=== PATIENT | female | born 1940 | race Caucasian/White ===

== ENCOUNTER 2016-07-08 10:28 | Inpatient (IN) | payer MEDICARE ==
[~2016-07-08] VITALS: Ht 170.2 cm; Wt 65.8 kg
[2016-07-08 12:20] LABS: HEMOGLOBIN 15.9 gm/dl (12.3-15.3); RED BLOOD COUNT 5.52 M/UL (4.00-5.10); WHITE BLOOD COUNT 26.9 K/UL (4.5-11.0)
[2016-07-08] MEDS ORDERED: CITALOPRAM HBR10 MG PO (18:37)
[2016-07-08] MEDS ORDERED: ZESTRIL 40 MG T40 MG PO (18:37)
[2016-07-09 04:31] LABS: HEMOGLOBIN 12.4 gm/dl (12.3-15.3); RED BLOOD COUNT 4.3 M/UL (4.00-5.10); WHITE BLOOD COUNT 27.8 K/UL (4.5-11.0)
[2016-07-10 03:54] LABS: HEMOGLOBIN 12.1 gm/dl (12.3-15.3); RED BLOOD COUNT 4.24 M/UL (4.00-5.10); WHITE BLOOD COUNT 23.5 K/UL (4.5-11.0)
[2016-07-11 03:58] LABS: HEMOGLOBIN 11.2 gm/dl (12.3-15.3); RED BLOOD COUNT 3.96 M/UL (4.00-5.10); WHITE BLOOD COUNT 23.1 K/UL (4.5-11.0)
[2016-07-12 04:11] LABS: HEMOGLOBIN 11.6 gm/dl (12.3-15.3); RED BLOOD COUNT 4.1 M/UL (4.00-5.10); WHITE BLOOD COUNT 19.8 K/UL (4.5-11.0)
[2016-07-13 03:43] LABS: HEMOGLOBIN 11.4 gm/dl (12.3-15.3); RED BLOOD COUNT 4.01 M/UL (4.00-5.10); WHITE BLOOD COUNT 16.2 K/UL (4.5-11.0)
[2016-07-14] MEDS ORDERED: EVISTA 60 MG TA60 MG PO (17:53)
[2016-07-14] MEDS ORDERED: TOPROL XL 100100 MG PO (17:53)
[2016-07-14] MEDS ORDERED: VIBERZI (17:55)
[2016-07-14] MEDS ORDERED: AMLODIPINE-BEN1 EAC4 PO (17:56)
[2016-07-14] MEDS ORDERED: MECLIZINE HCL25 MG PO (17:58)
[2016-07-15 07:41] LABS: HEMOGLOBIN 13.9 gm/dl (12.3-15.3); RED BLOOD COUNT 4.91 M/UL (4.00-5.10); WHITE BLOOD COUNT 47.6 K/UL (4.5-11.0)
--- NOTE | 2016-07-15 09:49 | NUR ---
0746 - NOTIFIED DR TIDWELL OF INCREASE IN WBC FROM 16 ON 07/13 TO 47.6 THIS AM. NO NEW ORDERS RECEIVED. 0805- PAGED REGARDING INCREASE IN WBC. 0992 - PAGED DR MCMAHON AGAIN REQARDING INCREASE IN WBC.
[2016-07-15 11:01] LABS: ADENOVIRUS F 40/41 Not Detected (Negative); ASTROVIRUS Not Detected (Negative); CAMPYLOBACTER Not Detected (Negative); CLOSTRIDIUM DIFFICILE TOX A/B Not Detected (Negative); CRYPTOSPORIDIUM Not Detected (Negative); E.COLI 0157 Not Detected (Negative); ENTAMOEBA HISTOLYTICA Not Detected (Negative); ENTEROAGGREGATIVE E.COLI (EAEC Not Detected (Negative); ENTEROPATHOGENIC E.COLI (EPEC) Not Detected (Negative); ENTEROTOXIGENIC E.COLI (ETEC) Not Detected (Negative); GIARDIA LAMBLIA Not Detected (Negative); NOROVIRUS GI/GII Not Detected (Negative); PLESIOMONAS SHIGELLOIDES Not Detected (Negative); ROTOVIRUS A Not Detected (Negative); SALMONELLA Not Detected (Negative); SAPOVIRUS Not Detected (Negative); SHIG/ENTEROINVAS.ECOLI (EIEC) Not Detected (Negative); SHIGA-LIK TOX.PRO.E.COLI (STEC Not Detected (Negative); VIBRIO Not Detected (Negative); VIBRIO CHOLERAE Not Detected (Negative); YERSINIA ENTEROCOLITICA Not Detected (Negative)
[2016-07-16 05:46] LABS: HEMOGLOBIN 12.7 gm/dl (12.3-15.3); RED BLOOD COUNT 4.44 M/UL (4.00-5.10)
[2016-07-16 05:48] LABS: WHITE BLOOD COUNT 49.7 K/UL (4.5-11.0)
--- NOTE | 2016-07-16 05:55 | NUR ---
ATTEMPTED TO CONTACT DR. TIDWELL AT 0554 ABOT A CRITICAL WBC COUNT OF 49.7. USED FIRST PREFERENCE.
== END 2016-07-19 04:30 | disposition expired | DRG 871 ==
LOC: ER1 10:28 → ZEROF 14:31 → CCU 14:31 → PROG CARE 14:31 → CCU 18:06 → MED SURG 4 07-13 17:43 → PROG CARE 07-16 14:15
PROVIDERS: Emergency Medicine; Hospitalist; Internal Medicine Critical Care Medicine; Internal Medicine Nephrology; Internal Medicine Pulmonary Disease; ADMIT Family Medicine
PROC: 5A09457 Assistance with Respiratory Ventilation, 24-96 Consecutive Hours, Continuous Positive Airway Pressure (ICD-10-PCS; principal; 2016-07-08)
DX: A41.9 Sepsis, unspecified organism (principal); R65.21 Severe sepsis with septic shock; J18.9 Pneumonia, unspecified organism; G93.41 Metabolic encephalopathy; J96.22 Acute and chronic respiratory failure with hypercapnia; J96.21 Acute and chronic respiratory failure with hypoxia; N17.0 Acute kidney failure with tubular necrosis; E87.1 Hypo-osmolality and hyponatremia; E87.4 Mixed disorder of acid-base balance; M62.82 Rhabdomyolysis; J44.1 Chronic obstructive pulmonary disease with (acute) exacerbation; I47.2 Ventricular tachycardia; K56.7 Ileus, unspecified; R18.8 Other ascites; I48.91 Unspecified atrial fibrillation; E86.0 Dehydration; Z51.5 Encounter for palliative care; Z66 Do not resuscitate; E87.70 Fluid overload, unspecified; K52.9 Noninfective gastroenteritis and colitis, unspecified; I25.10 Atherosclerotic heart disease of native coronary artery without angina pectoris; I12.9 Hypertensive chronic kidney disease with stage 1 through stage 4 chronic kidney disease, or unspecified chronic kidney disease; N18.3 Chronic kidney disease, stage 3 (moderate); K80.20 Calculus of gallbladder without cholecystitis without obstruction; K57.30 Diverticulosis of large intestine without perforation or abscess without bleeding; K76.0 Fatty (change of) liver, not elsewhere classified; F03.90 Unspecified dementia, unspecified severity, without behavioral disturbance, psychotic disturbance, mood disturbance, and anxiety; R68.0 Hypothermia, not associated with low environmental temperature; E03.9 Hypothyroidism, unspecified; R73.9 Hyperglycemia, unspecified; F17.200 Nicotine dependence, unspecified, uncomplicated; R91.1 Solitary pulmonary nodule; F41.1 Generalized anxiety disorder; F32.9 Major depressive disorder, single episode, unspecified; F10.21 Alcohol dependence, in remission; Z72.3 Lack of physical exercise; Z79.899 Other long term (current) drug therapy; Z81.1 Family history of alcohol abuse and dependence
CPT/HCPCS: ECHO; 36415; 36600; 71010; 74000; 80048; 80053; 80202; 81001; 82009; 82270; 82436; 82550; 82553; 82803; 82962; 83036; 83605; 83735; 83874; 83880; 84100; 84133; 84300; 84439; 84443; 84484; 85007; 85025; 85027; 85610; 85730; 87040; 87081; 87086; 87507; 93005; 93306; 94640; 94660; 94664; 96374; 96375; 96376; 97116; 97530; 99291; C9113; J0696; J1160; J1335; J1644; J1940; J1956; J2270; J2543; J2920; J2930; J3243; J3370; J7030; J7050; J7070